=== PATIENT | male | born 1980 | race Caucasian/White ===

== ENCOUNTER 2016-05-31 21:53 | Emergency (ER) | payer OTHER | END 2016-06-01 00:35 | disposition home or self-care (01) | LOC: ER 21:53 | DX: N20.1 Calculus of ureter (principal); F17.210 Nicotine dependence, cigarettes, uncomplicated | CPT/HCPCS: 36415; 96374; J1885 ==

== ENCOUNTER 2016-06-08 17:03 | Emergency (ER) | payer OTHER | END 2016-06-08 17:56 | disposition home or self-care (01) | LOC: ER 17:03 | DX: S93.492A Sprain of other ligament of left ankle, initial encounter (principal); F17.210 Nicotine dependence, cigarettes, uncomplicated; W17.2XXA Fall into hole, initial encounter; Y92.009 Unspecified place in unspecified non-institutional (private) residence as the place of occurrence of the external cause ==